=== PATIENT | male | born 1985 | race Two or more races ===

== ENCOUNTER 2024-11-18 13:26 | Inpatient (IN) | payer SELFPAY ==
[2024-11-18] MEDS: Dexamethasone 4 MG Tab PO ONE (13:39)
[2024-11-18] MEDS: Acetaminophen 500 MG Tab PO ONE (13:40)
[2024-11-18] MEDS: Ketorolac 30 MG/ML SDV IM ONE (13:41)
[2024-11-18 13:52] LABS: HEMATOCRIT 39.4 % (42.0-52.0); HEMOGLOBIN 13.7 g/dL (14.0-18.0); MEAN CORPUSCULAR HEMOGLOBIN 29.8 pg (28.0-32.0); MEAN CORPUSCULAR HGB CONC 34.8 g/dL (32.0-36.0); MEAN CORPUSCULAR VOLUME 85.7 fL (83.0-99.0); PLATELET COUNT,PLT 236 K/uL (150-400); WHITE BLOOD CELL COUNT,WBC 19.48 K/uL (3.9-11.3)
[2024-11-18 14:05] LABS: BAND ABSOLUTE MAN 0.39; BAND PERCENT MAN 2 %; LYMPHOCYTES ABSOLUTE MAN 1.75 K/uL (1.00-4.80); LYMPHOCYTES PERCENT MAN 9 % (24-44); MONOCYTES ABSOLUTE MAN 1.36 K/uL (0.00-0.80); MONOCYTES PERCENT MAN 7 % (0-8); SEG NEUTROPHILS ABSOLUTE MAN 15.97 K/uL (1.80-7.70); SEG NEUTROPHILS PERCENT MAN 82 % (41-71)
[2024-11-18] MEDS: Sodium Chloride 0.9% 1,000 ML IV ONE (14:10)
[2024-11-18] MEDS: Ondansetron 4 MG/2 ML SDV IVPUSH ONE (14:10)
[2024-11-18 14:16] LABS: A/G RATIO 0.8 (0.9-1.6); ALBUMIN 3.4 g/dL (3.4-5.0); BILIRUBIN TOTAL 0.7 mg/dL (0.2-1.0); C-REACTIVE PROTEIN 12.67 mg/dL (<0.3); CARBON DIOXIDE,CO2 23.1 mmol/L (21.0-32.0); CREATININE 0.9 mg/dL (0.8-1.3); EST CRCL DRUG DOSING (CG) 129.39 mL/min; POTASSIUM,K 3.8 mmol/L (3.5-5.1); PROTEIN TOTAL,TP 7.8 g/dL (6.4-8.2)
[2024-11-18 14:53] LABS: HEMOGLOBIN A1C 8.5 %
[2024-11-18] MEDS: Iopamidol 755 MG/ML 500 ML Multipack Bottle IVPUSH STA (15:01)
[2024-11-18] MEDS: cefTRIAXone 2 GM in Sodium Chloride 0.9% 50 ML IV ONE (15:09)
[2024-11-18] MEDS: Doxycycline 100 MG in Sodium Chloride 0.9% 100 ML IV ONE (15:36)
[2024-11-18] MEDS ORDERED: Polyethylene Glycol 3350 Powder 17 GM Packet PO PRN (16:25)
[2024-11-18] MEDS ORDERED: Ondansetron 4 MG/2 ML SDV IVPUSH PRN (16:25)
[2024-11-18] MEDS ORDERED: Melatonin 3 MG Tab PO PRN (16:25)
[2024-11-18] MEDS ORDERED: Docusate Sodium 100 MG Cap PO PRN (16:25)
[2024-11-18] MEDS ORDERED: Albuterol 0.083% 2.5 MG/3 ML Neb Soln NEB PRN (16:25)
[2024-11-18] MEDS ORDERED: Sodium Chloride 0.9% 2.5 ML Syringe FLUSH PRN (16:25)
[2024-11-18] MEDS ORDERED: Sodium Chloride 0.9% 10 ML Syringe FLUSH PRN (16:25)
[2024-11-18] MEDS ORDERED: Glucagon,Human Recombinant 1 MG Vial IM PRN (16:29)
[2024-11-18] MEDS ORDERED: 50% Dextrose in Water 50 ML Syringe IVPUSH PRN (16:29)
[2024-11-18] MEDS: Sodium Chloride 0.9% 1,000 ML IV SCH (17:01)
[2024-11-18] MEDS: VANCOmycin 2 GM/400 ML 2 GM in Premix Bag 1 BAG IV ONE (17:01)
[2024-11-18] MEDS: Enoxaparin 40 MG/0.4 ML Syringe SUBCUT SCH (17:02)
[2024-11-18] MEDS: Insulin Aspart 100 Units/ML 3 ML Pen SUBCUT SCH (17:16)
[2024-11-18] MEDS: Acetaminophen 325 MG Tab PO PRN (19:58)
[2024-11-19] MEDS: VANCOmycin 1.5 GM in Sodium Chloride 0.9% 250 ML IV SCH (01:04)
[2024-11-19 06:39] LABS: BASOPHILS ABSOLUTE AUTO 0.02 K/uL (0.00-0.20); BASOPHILS PERCENT AUTO 0.1 % (0.0-1.0); HEMATOCRIT 35.5 % (42.0-52.0); IMMATURE GRAN ABSOLUTE AUTO 0.15 K/uL (0.00-0.05); IMMATURE GRAN PERCENT AUTO 0.7 % (0.0-0.4); LYMPHOCYTES ABSOLUTE AUTO 1.05 K/uL (1.00-4.80); LYMPHOCYTES PERCENT AUTO 4.9 % (24.0-44.0); MEAN CORPUSCULAR HEMOGLOBIN 29.9 pg (28.0-32.0); MEAN CORPUSCULAR HGB CONC 33.8 g/dL (32.0-36.0); MEAN CORPUSCULAR VOLUME 88.3 fL (83.0-99.0); MEAN PLATELET VOLUME 11.6 fL (9.4-12.4); MONOCYTES ABSOLUTE AUTO 1.07 K/uL (0.00-0.80); NEUTROPHILS ABSOLUTE AUTO 19.04 K/uL (1.80-7.70); NEUTROPHILS PERCENT AUTO 89.3 % (41.0-71.0); PLATELET COUNT,PLT 216 K/uL (150-400); RED BLOOD CELL COUNT 4.02 M/uL (4.52-5.90); WHITE BLOOD CELL COUNT,WBC 21.33 K/uL (3.9-11.3)
[2024-11-19 07:04] LABS: C-REACTIVE PROTEIN 14.8 mg/dL (<0.3); CALCIUM 8.4 mg/dL (8.5-10.1); CARBON DIOXIDE,CO2 22.8 mmol/L (21.0-32.0); CREATININE 0.7 mg/dL (0.8-1.3); EST CRCL DRUG DOSING (CG) 166.36 mL/min; POTASSIUM,K 4.3 mmol/L (3.5-5.1)
[2024-11-19] MEDS: oxyCODONE 5 MG Tab PO PRN (07:58)
[2024-11-19] MEDS: cefTRIAXone 2 GM in Sodium Chloride 0.9% 50 ML IV SCH (11:45)
[2024-11-19] MEDS ORDERED: Bupivacaine 0.5% 30 ML SDV ONE (13:15)
[2024-11-19] MEDS ORDERED: Propofol 200 MG/20 ML SDV ONE (13:35)
[2024-11-19] MEDS ORDERED: Midazolam 1 MG/ML 2 ML SDV ONE (13:35)
[2024-11-19] MEDS ORDERED: Lidocaine 1% 5 ML VIAL ONE (13:35)
[2024-11-19] MEDS ORDERED: fentaNYL 100 MCG/2 ML SDV ONE ×2 (13:35→16:44)
[2024-11-19] MEDS ORDERED: Ondansetron 4 MG/2 ML SDV ONE (13:35)
[2024-11-19] MEDS ORDERED: Dexamethasone 4 MG/ML 5 ML MDV ONE (13:35)
[2024-11-19] MEDS ORDERED: Morphine 2 MG/ML SYRINGE IVPUSH PRN (14:23)
[2024-11-19] MEDS ORDERED: Ondansetron 4 MG/2 ML SDV IVPUSH PRN (14:23)
[2024-11-19] MEDS ORDERED: Phenylephrine HCl In 0.9% NaCl 1 MG/10 ML Syringe IVPUSH PRN (14:23)
[2024-11-19] MEDS ORDERED: Naloxone 0.4 MG/ML SDV IVPUSH PRN (14:23)
[2024-11-19] MEDS ORDERED: Albuterol 0.083% 2.5 MG/3 ML Neb Soln NEB PRN (14:23)
[2024-11-19] MEDS ORDERED: Metoclopramide 10 MG/2 ML SDV IVPUSH PRN (14:23)
[2024-11-19] MEDS: VANCOmycin 1.75 GM/350 ML 1.75 GM in Premix Bag 1 BAG IV SCH (17:08)
[2024-11-19] MEDS: HYDROmorphone 1 MG/ML Syringe IVPUSH PRN (17:25)
[2024-11-19] MEDS: fentaNYL 50 MCG/ML SDV IVPUSH PRN (17:27)
[2024-11-20 06:14] LABS: BASOPHILS ABSOLUTE AUTO 0.01 K/uL (0.00-0.20); BASOPHILS PERCENT AUTO 0.1 % (0.0-1.0); HEMATOCRIT 34.8 % (42.0-52.0); HEMOGLOBIN 11.7 g/dL (14.0-18.0); IMMATURE GRAN ABSOLUTE AUTO 0.08 K/uL (0.00-0.05); IMMATURE GRAN PERCENT AUTO 0.5 % (0.0-0.4); LYMPHOCYTES ABSOLUTE AUTO 1.05 K/uL (1.00-4.80); LYMPHOCYTES PERCENT AUTO 6.8 % (24.0-44.0); MEAN CORPUSCULAR HGB CONC 33.6 g/dL (32.0-36.0); MEAN CORPUSCULAR VOLUME 89.2 fL (83.0-99.0); MEAN PLATELET VOLUME 11.4 fL (9.4-12.4); MONOCYTES ABSOLUTE AUTO 0.62 K/uL (0.00-0.80); NEUTROPHILS PERCENT AUTO 88.6 % (41.0-71.0); PLATELET COUNT,PLT 223 K/uL (150-400); WHITE BLOOD CELL COUNT,WBC 15.46 K/uL (3.9-11.3)
[2024-11-20 06:42] LABS: CALCIUM 8.4 mg/dL (8.5-10.1); CARBON DIOXIDE,CO2 23.7 mmol/L (21.0-32.0); CREATININE 0.8 mg/dL (0.8-1.3); EST CRCL DRUG DOSING (CG) 145.56 mL/min; MAGNESIUM 2.3 mg/dL (1.8-2.4); POTASSIUM,K 4.4 mmol/L (3.5-5.1)
[2024-11-20] MEDS: VANCOmycin 1.75 GM/350 ML 1.75 GM in Premix Bag 1 BAG IV SCH (10:21)
[2024-11-20] MEDS: Docusate Sodium 100 MG Cap PO SCH (11:50)
[2024-11-20] MEDS: Polyethylene Glycol 3350 Powder 17 GM Packet PO SCH (11:51)
[2024-11-20] MEDS: Insulin Glargine,Hum.Rec.Anlog 100 UNIT/ML 3 ML Pen SUBCUT SCH (21:29)
[2024-11-21 05:54] LABS: BASOPHILS ABSOLUTE AUTO 0.02 K/uL (0.00-0.20); BASOPHILS PERCENT AUTO 0.2 % (0.0-1.0); EOSINOPHILS ABSOLUTE AUTO 0.02 K/uL (0.00-0.45); EOSINOPHILS PERCENT AUTO 0.2 % (0.0-6.0); HEMOGLOBIN 10.8 g/dL (14.0-18.0); IMMATURE GRAN ABSOLUTE AUTO 0.07 K/uL (0.00-0.05); IMMATURE GRAN PERCENT AUTO 0.6 % (0.0-0.4); LYMPHOCYTES ABSOLUTE AUTO 3.07 K/uL (1.00-4.80); LYMPHOCYTES PERCENT AUTO 27.1 % (24.0-44.0); MEAN CORPUSCULAR HGB CONC 32.7 g/dL (32.0-36.0); MEAN CORPUSCULAR VOLUME 88.7 fL (83.0-99.0); MEAN PLATELET VOLUME 11.4 fL (9.4-12.4); MONOCYTES ABSOLUTE AUTO 0.95 K/uL (0.00-0.80); MONOCYTES PERCENT AUTO 8.4 % (0.0-8.0); NEUTROPHILS PERCENT AUTO 63.5 % (41.0-71.0); PLATELET COUNT,PLT 233 K/uL (150-400); RED BLOOD CELL COUNT 3.72 M/uL (4.52-5.90); WHITE BLOOD CELL COUNT,WBC 11.33 K/uL (3.9-11.3)
[2024-11-21 06:15] LABS: CARBON DIOXIDE,CO2 24.1 mmol/L (21.0-32.0); CREATININE 0.7 mg/dL (0.8-1.3); EST CRCL DRUG DOSING (CG) 166.36 mL/min; MAGNESIUM 2.1 mg/dL (1.8-2.4)
[2024-11-21] MEDS: Enoxaparin 40 MG/0.4 ML Syringe SUBCUT SCH (11:48)
[2024-11-21] MEDS: oxyCODONE 5 MG Tab PO PRN (21:24)
[2024-11-22 05:53] LABS: BASOPHILS ABSOLUTE AUTO 0.05 K/uL (0.00-0.20); BASOPHILS PERCENT AUTO 0.5 % (0.0-1.0); EOSINOPHILS ABSOLUTE AUTO 0.11 K/uL (0.00-0.45); EOSINOPHILS PERCENT AUTO 1.1 % (0.0-6.0); HEMATOCRIT 34.1 % (42.0-52.0); HEMOGLOBIN 11.9 g/dL (14.0-18.0); IMMATURE GRAN ABSOLUTE AUTO 0.12 K/uL (0.00-0.05); IMMATURE GRAN PERCENT AUTO 1.2 % (0.0-0.4); LYMPHOCYTES ABSOLUTE AUTO 2.72 K/uL (1.00-4.80); LYMPHOCYTES PERCENT AUTO 28.2 % (24.0-44.0); MEAN CORPUSCULAR HGB CONC 34.9 g/dL (32.0-36.0); MEAN CORPUSCULAR VOLUME 85.9 fL (83.0-99.0); MEAN PLATELET VOLUME 10.7 fL (9.4-12.4); MONOCYTES PERCENT AUTO 11.4 % (0.0-8.0); NEUTROPHILS ABSOLUTE AUTO 5.53 K/uL (1.80-7.70); NEUTROPHILS PERCENT AUTO 57.6 % (41.0-71.0); NRBC ABSOLUTE 0.02 K/uL (0.00-0.02); NRBC PERCENT 0.2 /100WBC (0.0-0.2); PLATELET COUNT,PLT 252 K/uL (150-400); RED BLOOD CELL COUNT 3.97 M/uL (4.52-5.90); WHITE BLOOD CELL COUNT,WBC 9.63 K/uL (3.9-11.3)
[2024-11-22 06:21] LABS: CALCIUM 8.1 mg/dL (8.5-10.1); CARBON DIOXIDE,CO2 23.8 mmol/L (21.0-32.0); CREATININE 0.7 mg/dL (0.8-1.3); EST CRCL DRUG DOSING (CG) 166.36 mL/min; POTASSIUM,K 3.8 mmol/L (3.5-5.1)
[2024-11-22] MEDS: Ibuprofen 600 MG Tab PO SCH (12:43)
[2024-11-22] MEDS: Insulin Glargine,Human Rec. Analog 100 Units/ML 3 ML Pen SUBCUT SCH (21:01)
[2024-11-23 05:36] LABS: BASOPHILS ABSOLUTE AUTO 0.04 K/uL (0.00-0.20); BASOPHILS PERCENT AUTO 0.5 % (0.0-1.0); EOSINOPHILS ABSOLUTE AUTO 0.21 K/uL (0.00-0.45); EOSINOPHILS PERCENT AUTO 2.5 % (0.0-6.0); HEMATOCRIT 36.1 % (42.0-52.0); HEMOGLOBIN 12.1 g/dL (14.0-18.0); IMMATURE GRAN ABSOLUTE AUTO 0.13 K/uL (0.00-0.05); IMMATURE GRAN PERCENT AUTO 1.6 % (0.0-0.4); LYMPHOCYTES ABSOLUTE AUTO 2.41 K/uL (1.00-4.80); MEAN CORPUSCULAR HEMOGLOBIN 28.8 pg (28.0-32.0); MEAN CORPUSCULAR HGB CONC 33.5 g/dL (32.0-36.0); MEAN PLATELET VOLUME 10.8 fL (9.4-12.4); MONOCYTES ABSOLUTE AUTO 0.75 K/uL (0.00-0.80); NEUTROPHILS ABSOLUTE AUTO 4.76 K/uL (1.80-7.70); NEUTROPHILS PERCENT AUTO 57.4 % (41.0-71.0); PLATELET COUNT,PLT 276 K/uL (150-400)
[2024-11-23 06:03] LABS: CALCIUM 8.6 mg/dL (8.5-10.1); CARBON DIOXIDE,CO2 24.4 mmol/L (21.0-32.0); CREATININE 0.7 mg/dL (0.8-1.3); EST CRCL DRUG DOSING (CG) 166.36 mL/min; MAGNESIUM 2.2 mg/dL (1.8-2.4)
== END 2024-11-23 13:20 | disposition home or self-care (01) | DRG 501 ==
LOC: MW.ED 13:26 → MW.MS 16:10
PROVIDERS: ADMIT Internal Medicine; ATTEND Internal Medicine
PROC: 0MBP0ZZ Excision of Left Knee Bursa and Ligament, Open Approach (ICD-10-PCS; principal; 2024-11-19 14:15)
DX: M71.162 Other infective bursitis, left knee (principal); L03.116 Cellulitis of left lower limb; R78.81 Bacteremia; E11.65 Type 2 diabetes mellitus with hyperglycemia; E66.9 Obesity, unspecified; Z68.35 Body mass index [BMI] 35.0-35.9, adult; Z87.891 Personal history of nicotine dependence
CPT/HCPCS: 01320; 36415; 73701-26-LT; 73701-LT; 80048; 80053; 80202; 82947; 83036; 83605; 83735; 85025; 85652; 86140; 87040; 87070; 87075; 87077; 87186; 87205; 93306; 93971-26-LT; 93971-LT; 96361; 96365; 96367; 96372; 96375; 97110-GP; 97162-GP; 97530-GP; 99284; 99285-25; A9270-GY; J0131; J0665; J0696; J1100; J1171; J1650; J1815-GY; J1885; J2003; J2250; J2405; J2704; J3010; J3371; J3372; J3490; J7030; J7050; J8540; Q9967